=== PATIENT | female | born 1980 | race Two or more races ===

== ENCOUNTER 2020-08-16 17:22 | Emergency (ER) | payer MEDICARE, MEDICAID ==
[~2020-08-16] VITALS: Ht 157.5 cm; Wt 65.8 kg
[~2020-08-16 17:22] MED LIST: ATIVAN1 MG ORAL; KEPPRA500 M4 ORAL
--- NOTE | 2020-08-16 17:40 | NUR ---
ED Nurse Note: Pt BIBA from [facility] for witnessed seizure for about a minute. Pt is alert adn orientedx4, ambulatory. IV established. Blood sent to lab. Pt states she has history of seizures. She denies hitting head. Srinivasa hadn skin tear on wrist.
[2020-08-16 17:45] VITALS: BP 143/82
--- NOTE | 2020-08-16 18:00 | NUR ---
ED Nurse Note: Pt had seizure at 1800 witnessed by RN Martha. Padding on bed. Pt suctioned and lying on L side. HR 130, O2 98% RA, BP 136/83. MARILYN Winkler aware. Pt is a&ox0. Pt on monitor.
--- NOTE | 2020-08-16 18:01 | Emergency Room Report ---
History of Present Illness General Chief Complaint: Seizure Source: Patient Present Illness HPI 39-year-old female with history of tonic-clonic seizures currently Lamictal and loperamide as well as sertraline for depression here brought in by paramedics due to a seizure activity that occurred in [place] prior to arrival. Patient does not recall whether she hit her head or not. Patient denies urinary or b owel incontinence. Reports that last seizure activity was 15 days ago. Patient last saw neurologist over 1 month. Patient reports that she is also being treated by psychiatrist as neurologist believes that her depression contributes a lot to her recurrences of seizure. Patient does not drive. Denies tobacco smoke, alcohol intake, drug use. Denies headache and dizziness at this time. Speaks in full sentences. Neurovascularly intact. No unilateral generalized weakness noted. Denies . Allergies: Coded Allergies: ORANGE (Unverified Allergy, Unknown, 04/14/16) COVID-19 Screening Contact w/high risk pt: No Experienced COVID-19 symptoms?: No COVID-19 Testing performed [employer]: No Patient History Past Medical History: see triage record Past Surgical History: none Pertinent Family History: none Now: No Immunizations: UTD Reviewed Nursing Documentation: PMH: Agreed; PSxH: Agreed Nursing Documentation-PMH Past Medical History: No History, Except For Hx Seizures: Yes Review of Systems All Other Systems: negative except mentioned in HPI Physical Exam Vital Signs Date Time Temp Pulse Resp B/P (MAP) Pulse Ox O2 Delivery O2 Flow Rate FiO2 08/16/20 17:23 98.4 120 17 150/87 (108) 99 Room Air Sp02 EP Interpretation: reviewed, normal General Appearance: no apparent distress, alert, GCS 15, non-toxic Head: normocephalic, atraumatic Eyes: bilateral eye normal inspection, bilateral eye PERRL ENT: hearing grossly normal, normal pharynx, no angioedema, normal voice Neck: full range of motion, supple/symm/no masses Respiratory: chest non-tender, lungs clear, normal breath sounds, speaking full sentences Cardiovascular #1: regular rate, rhythm, no edema Cardiovascular #2: 2+ carotid (R), 2+ carotid (L), 2+ radial (R), 2+ radial (L), 2+ dorsalis pedis (R), 2+ dorsalis pedis (L) Gastrointestinal: normal bowel sounds, non tender, soft, non-distended, no guarding, no rebound Rectal: deferred Musculoskeletal: back normal, digits/nails normal, no calf tenderness Neurologic: alert, motor strength/tone normal, oriented, oriented x3, sensory intact, responsive, speech normal Psychiatric: judgement/insight normal, memory normal, mood/affect normal, no suicidal/homicidal ideation Skin: no rash Lymphatic: no adenopathy Medical Decision Making PA Attestation All diagnoses and treatment plans were reviewed and discussed with my supervising physician Dr. Guerrero Diagnostic Impression: Primary Impression: Seizure disorder ER Course 39-year-old female with history of tonic-clonic seizures currently Lamictal and loperamide as well as sertraline for depression here brought in by paramedics due to a seizure activity that occurred in [facility] salon prior to arrival. Patient does not recall whether she hit her head or not. Patient denies urinary or bowel incontinence. Reports that last seizure activity was 15 days ago. Patient last saw neurologist over 1 month. Patient reports that she is also being treated by psychiatrist as neurologist believes that her depression contributes a lot to her recurrences of seizure. Patient does not drive. Denies tobacco smoke, alcohol intake, drug use. Denies headache and dizziness at this time. Speaks in full sentences. Neurovascularly intact. No unilateral generalized weakness noted. Denies . Ddx considered but are not limited to: Dizziness due to alcohol intoxication, dizziness unspecified, dizziness due to head trauma, dizziness secondary to cardiac reasons seizure tonic clonic. epilepsy Vital signs: are WNL, pt. is afebrile H&PE are most consistent with: seizure disorder ORDERS: sz disorder order set ER intervention: NS bolus DISCHARGE: At this time pt. is stable for d/c to home. Will provide printed patient care instructions, and any necessary prescriptions. Care plan and follow up instructions have been discussed with the patient prior to discharge. Take medication as directed, follow-up with your neurologist and your psychiatrist, if worsening symptom return to the emergency room EKG Diagnostic Results Rate: tachycardiac Rhythm: other - tachy ST Segments: no acute changes Other Impression no acute ST changes ASA given to the pt in ED: No Other X-Ray Diagnostic Results Other X-Ray Diagnostic Results : # of Views/Limited Vs Complete: 1 View Indication: Pain EP Interpretation: Yes PA Xray: Interpretation reviewed, by supervising MD, and agrees with findings. Interpretation: no dislocation, no soft tissue swelling, no fractures Impression: No acute disease Electronically Signed by: Cathi Lopez PA-C CT/MRI/US Diagnostic Results CT/MRI/US Diagnostic Results : Imaging Test Ordered: CT head noncontrast Impression Within normal limits Last Vital Signs Date Time Temp Pulse Resp B/P (MAP) Pulse Ox O2 Delivery O2 Flow Rate FiO2 08/16/20 17:23 98.4 120 17 150/87 (108) 99 Room Air Disposition: HOME, SELF-CARE Condition: Stable Patient Instructions: Seizure, Adult Additional Instructions: Take medication as directed, follow-up with your neurologist and your psychiatrist, if worsening symptom return to the emergency room Cathi Gonzalez Aug 16, 2020 18:01
[2020-08-16 18:11] LABS: APPEARANCE,URINE CLOUDY; BILIRUBIN, URINE NEGATIVE (NEGATIVE); GLUCOSE, URINE (UA) NEGATIVE (NEGATIVE); KETONES,URINE 2+ (NEGATIVE); LEUKOCYTE ESTERASE ,URINE NEGATIVE (NEGATIVE); NITRITE,URINE NEGATIVE (NEGATIVE); PH,URINE 5 (4.5-8.0); PROTEIN,URINE 2+ (NEGATIVE); UROBILINOGEN,URINE NORMAL MG/DL (0.0-1.0)
[2020-08-16 18:16] LABS: COLOR,URINE YELLOW
[2020-08-16 18:17] LABS: BASOPHILS % (AUTO) 0.8 % (0.0-2.0); EOSINOPHILS % (AUTO) 0.6 % (0.0-3.0); HEMATOCRIT 40.9 % (37.0-47.0); HEMOGLOBIN 13.1 G/DL (12.0-16.0); LYMPHOCYTES % (AUTO) 12.5 % (20.0-45.0); MEAN CORPUSCULAR VOLUME 81 FL (80-99); MONOCYTES % (AUTO) 3.8 % (1.0-10.0); NEUTROPHILS % (AUTO) 82.2 % (45.0-75.0); PLATELET COUNT 474 K/UL (150-450); RED BLOOD COUNT 5.04 M/UL (4.20-5.40); RED CELL DISTRIBUTION WIDTH 13.8 % (11.6-14.8); WHITE BLOOD COUNT 11.4 K/UL (4.8-10.8)
--- NOTE | 2020-08-16 18:20 | NUR ---
ED Nurse Note: Pt alertness back at baseline, a&ox4.
[2020-08-16 18:25] LABS: ANION GAP 14 mmol/L (5-15); BLOOD UREA NITROGEN 9 mg/dL (7-18); CALCIUM 8.7 MG/DL (8.5-10.1); CARBON DIOXIDE 21 MMOL/L (21-32); CHLORIDE 103 MMOL/L (98-107); SODIUM 138 MMOL/L (136-145)
[2020-08-16 18:29] LABS: ALANINE AMINOTRANSFERASE 18 U/L (12-78); ALBUMIN 4.3 G/DL (3.4-5.0); ALKALINE PHOSPHATASE 97 U/L (46-116); ASPARTATE AMINO TRANSFERASE 15 U/L (15-37); BILIRUBIN,TOTAL 0.2 MG/DL (0.2-1.0); CREATINE KINASE 86 U/L (26-308)
--- NOTE | 2020-08-16 18:52 | Diagnostic Imaging Report ---
EXAM: CT Head Without Intravenous Contrast CLINICAL HISTORY: SZ TECHNIQUE: Axial computed tomography images of the head/brain without intravenous contrast. CTDI is 53.4 mGy and DLP is 1045.5 mGy-cm. One or more of the following dose reduction techniques were used: automated exposure control, adjustment of the mA and/or kV according to patient size, use of iterative reconstruction technique. COMPARISON: None FINDINGS: Brain: No acute infarct or hemorrhage. No extra-axial fluid collection. No mass effect or midline shift. Ventricles and sulci: Normal. No ventriculomegaly or intraventricular hemorrhage. Bones: Normal. No bony lesion or acute fracture. Subcutaneous tissues: Normal. Sinuses: Normal. No air-fluid levels or mucosal thickening. Mastoid air cells: Normal. Orbits: Grossly unremarkable. IMPRESSION: No acute intracranial abnormality.
--- NOTE | 2020-08-16 18:53 | Diagnostic Imaging Report ---
EXAM: XR Chest, 1 View CLINICAL HISTORY: PAIN TECHNIQUE: Frontal view of the chest. COMPARISON: None FINDINGS: Hardware: None. Lungs/pleura: Lower lung opacities. No pleural effusion or pneumothorax. Heart/mediastinum: Normal. No cardiomegaly. Soft tissues: Unremarkable. Bones: No acute fracture. Upper abdomen: Normal. IMPRESSION: Lower lung opacities may represent atelectasis versus infectious/inflammatory process.
--- NOTE | 2020-08-16 19:15 | NUR ---
ED Nurse Note: Report received from JV Thomas. Patient is awake and alert. She is oriented x4. She is able to speak in full sentences, not postical s/p seizure. Her HR is tachy at 110, but patient states "I'm nervous".
[2020-08-16 19:30] VITALS: BP 135/85
--- NOTE | 2020-08-16 19:30 | NUR ---
ER DISCHARGE NOTE: Patient is cleared to be discharged per ERMD/ERPA, pt is aox4, on room air, with stable vital signs. ERPA is aware of patient's charted HR. pt was given dc instructions, pt was able to verbalize understanding, pt id band and iv site removed without complications. pt is able to ambulate with steady gait. pt took all belongings and accompanied by family members.
--- NOTE | 2020-08-18 16:08 | Cardiology Report ---
APPROVED REPORT EKG Measurement Heart [id number] <Conclusion> Sinus tachycardia Low voltage QRS Septal infarct, age undetermined Abnormal ECG
== END 2020-08-16 19:30 | disposition home or self-care (01) ==
LOC: EDBD 17:22 → EMR 17:45
DX: G40.909 Epilepsy, unspecified, not intractable, without status epilepticus (principal); Z91.018 Allergy to other foods; F32.9 Major depressive disorder, single episode, unspecified; R00.0 Tachycardia, unspecified; R07.9 Chest pain, unspecified
CPT/HCPCS: 36415; 70450; 71045; 80053; 80307; 81003; 81025; 82550; 84484; 85025; 87086; 93005; 96360; 99284; G0480; J7030